=== PATIENT | male | born 1980 | race Caucasian/White ===

== ENCOUNTER 2016-09-16 09:07 | Emergency (ER) | payer SELFPAY ==
[~2016-09-16] VITALS: Ht 170.2 cm; Wt 106.6 kg
[2016-09-16 09:10] VITALS: BP 150/96
--- NOTE | 2016-09-16 09:34 | PHYS DOC ---
Past Medical History Past Medical History: Hypertension Past Surgical History: No Surgical History Adult General HPI HPI Patient is a 36 year old presents emergency department stating that he is having right ear pain and discomfort. He states he feels like he has something. His states that she tried to irrigate it with peroxide and water last night with no relief. She states that she did try to irrigate it again this morning with water with no real relief noted. She states that he did complain of ear pain after irrigation. Patient denies fever, chills he does have nasal congestion. Review of Systems Review of Systems Constitutional: Denies fever or chills [] Eyes: Denies change in visual acuity, redness, or eye pain [] HENT: Denies nasal congestion or sore throat. C/o right ear pain Respiratory: Denies cough or shortness of breath [] Cardiovascular: No additional information not addressed in HPI [] GI: Denies abdominal pain, nausea, vomiting, bloody stools or diarrhea [] : Denies dysuria or hematuria [] Musculoskeletal: Denies back pain or joint pain [] Integument: Denies rash or skin lesions [] Neurologic: Denies headache, focal weakness or sensory changes [] Allergies Allergies Allergies Coded Allergies Type Severity Reaction Last Updated Verified Sulfa (Sulfonamide Antibiotics) Allergy Intermediate HIVES 09/16/16 Yes Physical Exam Physical Exam Constitutional: Well developed, well nourished, no acute distress, non-toxic appearance. [] HENT: Normocephalic, atraumatic, bilateral external ears normal, oropharynx moist, no oral exudates, nose normal. Right ear appears to have a cotton in the ear canal. Left ear is normal. Patient with nasal congestion noted. Eyes: PERRLA, EOMI, conjunctiva normal, no discharge. [] Neck: Normal range of motion, no tenderness, supple, no stridor. [] Cardiovascular:Heart rate regular rhythm, no murmur [] Lungs & Thorax: Bilateral breath sounds clear to auscultation [] Skin: Warm, dry, no erythema, no rash. [] Back: No tenderness, no CVA tenderness. [] Extremities: No tenderness, no cyanosis, no clubbing, ROM intact, no edema. [] Neurologic: Alert and oriented X 3, normal motor function, normal sensory function, no focal deficits noted. [] Psychologic: Affect normal, judgement normal, mood normal. [] EKG EKG [] Radiology/Procedures Radiology/Procedures [] Course & Med Decision Making Course & Med Decision Making Pertinent Labs and Imaging studies reviewed. (See chart for details) Patient's right ear was irrigated with cotton obtained from the ear. Right ear appear to have scaring noted, no redness noted. Patient will be discharged home with recommendations not to place cotton into the ear canal as well as not to use cotton swabs. Patient will be discharged home in stable condition signs symptoms to return back to emergency department as been provided. [] Dragon Disclaimer Dragon Disclaimer This electronic medical record was generated, in whole or in part, using a voice recognition dictation system. Departure Departure Impression: Primary Impression: Foreign body in right ear Disposition: 01 HOME, SELF-CARE Condition: STABLE Patient Instructions: Ear Foreign Body, [id number] Additional Instructions: Activity as tolerated Tylenol or Ibuprofen for pain and discomfort Avoid putting cotton in the ear canal or using cotton swab Followup with primary care provider in 7-10 days Return to emergency department as needed for signs and symptoms that become worse. BENEDICTO BAUTISTA APRN Sep 16, 2016 09:34
== END 2016-09-16 09:59 | disposition home or self-care (01) ==
LOC: ER 09:07
DX: T16.1XXA Foreign body in right ear, initial encounter (principal); R09.81 Nasal congestion; I10 Essential (primary) hypertension; Z88.2 Allergy status to sulfonamides; X58.XXXA Exposure to other specified factors, initial encounter; Y93.89 Activity, other specified; Y92.89 Other specified places as the place of occurrence of the external cause; Y99.8 Other external cause status
CPT/HCPCS: 69209; 99282